=== PATIENT | male | born 1970 | race Two or more races ===

== ENCOUNTER 2020-09-26 04:18 | Day surgery (SDC) | payer SELFPAY ==
[~2020-09-26] VITALS: Ht 182.9 cm; Wt 101.6 kg
[2020-09-26] MEDS ORDERED: ONDANSETRON 2MG/ML, 2ML IVPush ONE (04:30)
[2020-09-26] MEDS ORDERED: ONDANSETRON ODT 4 MG ONE (04:51)
[2020-09-26] MEDS ORDERED: MORPHINE SULFATE 4 MG/ML, 1ML ONE ×2 (04:51→06:22)
[2020-09-26] MEDS ORDERED: ONDANSETRON 2MG/ML, 2ML ONE ×2 (04:52→09:43)
--- NOTE | 2020-09-26 05:18 | NUR ---
pt presents to ed with right upper quad abd pain. pt has had gallstones before, pt states it hurts worse after eating greasy foods. pt in gown, resting on gurney, and placed on continuous monitoring. pt has been to us already
[2020-09-26] MEDS: MORPHINE SULFATE 4 MG/ML, 1ML IVPush PRN ×2 (05:20→06:27)
[2020-09-26 05:51] LABS: ALANINE AMINOTRANSFERASE 24 U/L (12-78); ALBUMIN 3.8 g/dL (3.4-5.0); ANION GAP 9 mmol/L (5-15); CALCIUM 8.4 mg/dL (8.5-10.1); CHLORIDE 107 mmol/L (98-107); CREATININE 0.88 mg/dL (0.7-1.3)
[2020-09-26 05:52] LABS: BASOPHILS % (AUTO) 0 % (0-1); EOSINOPHILS % (AUTO) 0 % (1-7); LYMPHOCYTES % (AUTO) 8 % (22-44); MEAN CORPUSCULAR HEMOGLOBIN 30.8 pg (27.5-34.5); MEAN CORPUSCULAR HGB CONC 34.3 g/dL (33.2-36.2); MEAN PLATELET VOLUME 9.2 fL (7.4-10.4); MONOCYTES % (AUTO) 5 % (2-9); NEUTROPHILS % (AUTO) 87 % (42-75); PLATELET COUNT 169 x10^3/uL (130-400); RED BLOOD COUNT 4.51 x10^6/uL (4.38-5.82); RED CELL DISTRIBUTION WIDTH 13.9 % (9.4-14.8)
[2020-09-26 05:53] LABS: ALKALINE PHOSPHATASE 68 U/L (45-117); BILIRUBIN,TOTAL 0.5 mg/dL (0.2-1.0); TOTAL PROTEIN 7.8 g/dL (6.4-8.2)
--- NOTE | 2020-09-26 06:09 | NUR ---
pt resting on gurney, denies needs at this time.
[2020-09-26] MEDS ORDERED: CEFOTETAN PMX 1GM/50ML 50 ML IVPB ONE (06:30)
[2020-09-26] MEDS ORDERED: SODIUM CHLORIDE FLUSH 10ML SYR IVF PRN (06:30)
[2020-09-26] MEDS ORDERED: MORPHINE SULFATE 4 MG/ML, 1ML IVPush PRN (06:30)
[2020-09-26] MEDS ORDERED: SODIUM CHLORIDE 0.9% 1,000 ML IV ONE (06:30)
[2020-09-26] MEDS ORDERED: ONDANSETRON 2MG/ML, 2ML IVPush PRN ×2 (06:30→13:00)
[2020-09-26] MEDS ORDERED: EPINEPHRINE 1 MG/ML, 1ML ONE (07:08)
[2020-09-26] MEDS ORDERED: BUPIVACAINE/PF 0.5% ONE (07:08)
--- NOTE | 2020-09-26 07:11 | NUR ---
ATTEMPT TO CALL REPORT, TOLD RN TO CALL BACK
--- NOTE | 2020-09-26 07:31 | NUR ---
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
[2020-09-26] MEDS ORDERED: MIDAZOLAM 1 MG/ML, 2ML ONE (08:46)
[2020-09-26] MEDS ORDERED: FENTANYL PF 250 MCG/5ML ONE (08:47)
[2020-09-26] MEDS ORDERED: DOCU100C33 PO (08:54)
[2020-09-26] MEDS ORDERED: ACET325T26 PO (08:54)
[2020-09-26] MEDS ORDERED: IBUP-1222 PO (08:54)
[2020-09-26] MEDS ORDERED: OXYC5TAB2 PO (08:54)
[2020-09-26] MEDS ORDERED: LABETALOL 5MG/ML, 20ML IV PRN (09:00)
[2020-09-26] MEDS ORDERED: HYDROmorphone 1 MG/ML, 1ML INJ IVPush PRN (09:00)
[2020-09-26] MEDS ORDERED: ACETAMINOPHEN 325 MG TABLET PO PRN ×2 (09:00→18:00)
[2020-09-26] MEDS ORDERED: PROMETHAZINE 25 MG/ML, 1ML IVPush PRN (09:00)
[2020-09-26] MEDS ORDERED: FENTANYL PF 100 MCG/2ML IV PRN (09:00)
[2020-09-26] MEDS ORDERED: hydrALAzine 20 MG/ML, 1ML IV PRN (09:00)
[2020-09-26] MEDS ORDERED: MEPERIDINE/PF 25MG/0.5ML IVPush PRN (09:00)
[2020-09-26] MEDS ORDERED: DIPHENHYDRAMINE 50 MG/ML, 1ML IVPush PRN ×2 (09:00→13:00)
[2020-09-26] MEDS ORDERED: HALOPERIDOL 5 MG/ML IV PRN (09:00)
[2020-09-26] MEDS ORDERED: OXYcodone 5 MG/5 ML ORAL.SOL UDC PO PRN ×2 (09:00→13:00)
[2020-09-26] MEDS ORDERED: CEFOTETAN 2 GM ONE (09:02)
[2020-09-26] MEDS ORDERED: KETOROLAC 30 MG/1 ML ONE ×2 (09:15)
[2020-09-26] MEDS ORDERED: BUPIVACAINE/PF-EPI 0.5% 1:200K IM ONE (09:21)
[2020-09-26] MEDS ORDERED: GLYCOPYRROLATE 0.2MG/1ML, 5ML ONE (09:43)
[2020-09-26] MEDS ORDERED: ROCURONIUM 10MG/ML,5ML ONE (09:43)
[2020-09-26] MEDS ORDERED: SUCCINYLCHOLINE 20 MG/ML, 10ML ONE (09:43)
[2020-09-26] MEDS ORDERED: DEXAMETHASONE 4 MG/ML, 1ML ONE (09:43)
[2020-09-26] MEDS ORDERED: PROPOFOL 10 MG/ML, 20ML ONE (09:43)
[2020-09-26] MEDS ORDERED: CEFAZOLIN 1,000 MG ONE (09:43)
[2020-09-26] MEDS ORDERED: NEOSTIGMINE 1 MG/ML, 10ML ONE (09:43)
[2020-09-26] MEDS ORDERED: MEPERIDINE/PF 25MG/ML,1ML ONE (11:00)
[2020-09-26 12:45] VITALS: BP 145/79
[2020-09-26] MEDS ORDERED: LACTATED RINGERS 1,000 ML IV SCH (13:00)
[2020-09-26] MEDS ORDERED: HYDROmorphone 2 MG/ML, 1ML IV PRN (13:00)
[2020-09-26] MEDS ORDERED: KETOROLAC 30 MG/1 ML IV PRN (13:00)
[2020-09-26 13:31] VITALS: BP 137/80
[2020-09-26] MEDS ORDERED: ENOXAPARIN 40 MG/0.4 ML SQ SCH (19:00)
== END 2020-09-26 17:30 | disposition home or self-care (01) ==
LOC: ED 05:35 → EDIP 06:12 → OUT 06:12 → UNDOADMIN 06:12 → 4NE 11:31 → EDIP 11:31 → EDSTATUS 15:11 → UNDODISIN 17:30 → OUT 17:30
PROVIDERS: ATTEND Emergency Medicine
DX: K80.12 Calculus of gallbladder with acute and chronic cholecystitis without obstruction (principal); Z20.822 Contact with and (suspected) exposure to COVID-19
CPT/HCPCS: 36415; 47562; 76700; 80053; 83690; 85025; 87635; 88304; 93005; 96374; 96375; 99285; J0171; J0330; J0690; J1100; J1200; J1885; J2175; J2250; J2270; J2405; J2704; J2710; J3010; J7120; G0378

== ENCOUNTER 2020-10-05 10:10 | Emergency (ER) | payer SELFPAY ==
[~2020-10-05] VITALS: Ht 182.9 cm; Wt 95.9 kg
[~2020-10-05 10:10] MED LIST: ACET325T26 PO; DOCU100C33 PO; IBUP-1222 PO; OXYC5TAB2 PO
--- NOTE | 2020-10-05 10:18 | NUR ---
PT AMBULATORY TO ROOM FROM TRIAGE, CHANGED INTO GOWN, MONITORS IN PLACE. AT BS. PT C/O DRAINAGE FROM GALLBLADDER REMOVAL INCISION. PT STATES HE HAD HIS GALLBLADDER REMOVED ON SUNDAY. DRAINAGE AND ERYTHEMA NOTED ON LOWER ABD. PT STATES NO OTHER SYMPTOMS AND NO PAIN BUT WANTS TO GET INCISION CHECKED.
--- NOTE | 2020-10-05 11:11 | NUR ---
ERP AND MED STUDENT AT BS
[2020-10-05] MEDS ORDERED: MUPIROCIN CRM 2%, 15GM TP ONE (11:14)
--- NOTE | 2020-10-05 11:15 | NUR ---
PA AT BS TO LOOK AT INCISION
[2020-10-05] MEDS ORDERED: CEFAZOLIN 1,000 MG ONE (11:23)
[2020-10-05 11:29] VITALS: BP 115/76
[2020-10-05] MEDS ORDERED: CEFAZOLIN 1,000 MG IM ONE (11:30)
[2020-10-05] MEDS ORDERED: MUPIROCIN OINT 2%, 15GM TP ONE (12:00)
--- NOTE | 2020-10-05 12:01 | NUR ---
Patient given discharge instructions and RX, they have confirmed that they understand the instructions. Patient ambulatory with steady gait.
== END 2020-10-05 12:02 | disposition home or self-care (01) ==
LOC: ED 10:29
DX: L02.211 Cutaneous abscess of abdominal wall (principal); L03.311 Cellulitis of abdominal wall; Z90.49 Acquired absence of other specified parts of digestive tract
CPT/HCPCS: 96372; 99283; J0690